=== PATIENT | male | born 1990 | race Caucasian/White ===

== ENCOUNTER 2024-12-21 23:44 | Emergency (ER) | payer MEDICAID ==
[2024-12-21 23:51] VITALS: BP 125/79; PULSE 110; RESP 18; TEMP 98; O2SAT 98
[2024-12-22] MEDS ORDERED: SULF1TAB49 PO (00:11)
[2024-12-22] MEDS ORDERED: PRED20TA PO (00:11)
--- NOTE | 2024-12-22 00:14 | Physician Documentation ---
History of Present Illness ~ Chief Complaint: Rash Stated Complaint: POISON OAK Time Seen by MD: 00:02 HPI Patient presents to the emergency room with concerns for poison oak that has beginning in to be infected. No fevers. Patient is homeless and has been using [id number] remedies with limited benefit. Medication Reconciliation Allergies: Coded Allergies: No Known Allergies (Unverified , 10/04/11) Scheduled Prednisone* (Prednisone*), 1 TAB PO DAILY Sulfamethoxazole/Trimethoprim (Bactrim Ds Tablet), 1 TAB PO Q12H Review of Systems ROS All review of systems negative except as per HPI Physical Exam Vital Signs: Temperature: 98.0, Heart Rate: 110, Respiratory Rate: 18, BP: 125/79, Pulse Oximetry: 98 Oxygen Flow Rate: 0 Physical Exam General: Patient is awake, alert, oriented x4 in no acute distress Head: Normocephalic and atraumatic. Eyes: Conjunctival normal. EOMI. PERRL. ENT: Mucous membranes moist. Neck: Supple, trachea is midline. Chest: Clear to auscultation bilaterally without rales, rhonchi, or wheezes. There is no accessory muscle use or retractions. Cardiac: Tachycardic and regular without murmurs, gallops, or rubs. Skin: Poison oak noted on extremities with possible early cellulitis Progress Results/Orders Results/Orders Orders - FRANSISCO VELIZ MD Dressing Orders (12/22/24 00:08) Completed Orders - FRANSISCO VELIZ MD Bacitracin Ointment (Bacitracin Ointment (12/22/24 00:10) Sulfamethox/Trimetho. Ds Tab (Septra Ds (12/22/24 00:10) Ondansetron Disint. Tablet (Zofran Odt T (12/22/24 00:10) Prednisone Tablet (Prednisone Tablet) (12/22/24 00:10) Vital Signs 12/21/24 23:51 Temp 98.0 Pulse 110 Resp 18 B/P (MAP) 125/79 Pulse Ox 98 O2 Flow Rate 0 Medical Decision Making Findings Patient presents to the emergency room with skin rash as per HPI. Differentials include but are not limited to poison oak, cellulitis, drug reaction, heat rash. We will treat him for poison oak and early infection. ER precautions discussed Departure Disposition: HOME / SELF CARE / HOMELESS Impression: Primary Impression: Cellulitis Additional Impression: Poison oak Discharge Instructions: Cellulitis, Adult, Poison Stow Dermatitis, [id number] Referrals: NO PRIMARY CARE PROVIDER (PCP) Prescriptions Sulfamethoxazole/Trimethoprim (Bactrim Ds Tablet) 800 Mg-160 Mg Tablet 1 TAB PO Q12H for 7 Days, #14 TAB Prov: FRANSISCO VELIZ MD 12/22/24 Prednisone* (Prednisone*) 20 Mg Tablet 1 TAB PO DAILY for 5 Days, #5 TAB Prov: FRANSISCO VELIZ MD 12/22/24 Signature Scribe Signature: No scribe Attestation: The note accurately reflects work and decisions made by me.Fransisco Veliz MD 12/22/24 00:14 FRANSISCO VELIZ MD Dec 22, 2024 00:14
[2024-12-22] MEDS: predniSONE 20 mg tablet PO ONE (00:16)
[2024-12-22] MEDS: bacitracin 15gm ointment TP ONE (00:16)
[2024-12-22] MEDS: sulfamethoxazole/trimethoprim DS (800/160mg) tablet PO ONE (00:16)
[2024-12-22] MEDS: ondansetron 4mg rapidly disintigrating tab PO ONE (00:16)
== END 2024-12-22 00:33 | disposition home or self-care (01) ==
LOC: ER 23:44
DX: L23.7 Allergic contact dermatitis due to plants, except food (principal); Z59.00 Homelessness unspecified
CPT/HCPCS: 99284; J7512